=== PATIENT | female | born 1945 | race Caucasian/White ===

== ENCOUNTER 2019-03-09 18:15 | Inpatient (IN) | payer MEDICARE, MEDICAID ==
[~2019-03-09] VITALS: Ht 167.6 cm; Wt 55.3 kg
--- NOTE | 2019-03-09 18:15 | NUR ---
RECIEVED BY PRIVATE VEHICLE TO REHAB,ROOM 1112F FOR REHABILITATION S/P CVA.ORIENTED TO ROOM AND SURROUNDINGS.CL IN REACH.
[2019-03-09 19:00] VITALS: BP 139/58
--- NOTE | 2019-03-09 19:13 | NUR ---
PATIENT IS RESTING IN HER BED. BED IS DOWN LOW. SIDE RAILS UP X2. CALL LIGHT IS IN REACH.
[2019-03-09 21:37] VITALS: BP 139/58; BMI 19.7
--- NOTE | 2019-03-10 00:08 | NUR ---
PATIENT IS SLEEPING. BED IS DOWN LOW WITH SIDE RAILS UP X2. CALL LIGHT IS IN REACH.
--- NOTE | 2019-03-10 04:07 | NUR ---
PATIENT IS SLEEPING. HER SON IS AT BEDSIDE. BED IS DOWN LOW WITH SIDE RAILS UP X2. CALL LIGHT IS IN REACH.
--- NOTE | 2019-03-10 07:33 | NUR ---
ALERT AND ORIENTED. EATING BREAKFAST. NO DISTRESS NOTED. CL IN REACH.
[2019-03-10 08:36] VITALS: BP 143/63
[2019-03-10 08:48] LABS: BASOPHILS 0.1 % (0-2); EOSINOPHILS 2.9 % (0-7); HEMATOCRIT 38.7 % (36.0-48.0); HEMOGLOBIN 13.1 g/dL (12-16); IMMATURE GRANULOCYTES 0.5 % (0-5); MCH 32.1 pg (26.0-34.0); MCHC 33.9 g/dL (31.0-37.0); MCV 94.9 fL (80.0-100.0); MEAN PLATELET VOLUME 9.3 fL (7.4-10.4); MONOCYTES 8.1 % (2-11); NEUTROPHILS 77.4 % (40-80); PLATELET COUNT 356 10x3/uL (130-400); RBC 4.08 10x6/uL (4.00-5.40); RDW 14.6 % (11.5-14.5); WBC 10.6 10x3/uL (4.8-10.8)
[2019-03-10 09:00] LABS: ANION GAP 9.3 mmol/L (8-16); CALCIUM 8.9 mg/dL (8.5-10.1); CARBON DIOXIDE 29.2 mmol/L (21.0-32.0); CREATININE - SERUM 0.9 mg/dL (0.6-1.3); POTASSIUM - SERUM 4.5 mmol/L (3.5-5.1)
--- NOTE | 2019-03-10 09:57 | NUR ---
PATIENT ADMITTED TO REHAB FROM AN OUTSIDE FACILITY WITH THE DX OF CVA. DR. PEREZ IS HER PCP. WILL CONTINUE TO FOLLOW WITH PATIENT AND WILL ASSIST WITH DC NEEDS.
--- NOTE | 2019-03-10 12:57 | NUR ---
SITTING IN CHAIR. NO DISTRESS NOTED. CL IN REACH.
--- NOTE | 2019-03-10 12:58 | NUR ---
SHOWER TODAY PER OT.
[2019-03-10 13:01] VITALS: Ht 167.6 cm; Wt 55.3 kg
[2019-03-10 13:24] VITALS: BP 120/49
--- NOTE | 2019-03-10 13:51 | NUR ---
CARE TEAM MEETING: PATIENT IS NEW TO UNIT AND WILL BE RA AT NEXT MEETING. WILL CONTINUE TO FOLLOW WITH PATIENT
--- NOTE | 2019-03-10 15:38 | NUR ---
PARTICIPATING IN THERAPY. NO DISTRESS NOTED.
--- NOTE | 2019-03-10 18:30 | NUR ---
NO C/O PAIN. NO CHANGE IN ASSESSMENT. CL IN REACH. RESP EVEN AND UNLABORED.
[2019-03-10 19:00] VITALS: BP 131/47
--- NOTE | 2019-03-10 23:46 | NUR ---
PT IN BED UP TO TOILET, DRAGGING OF LEFT FOOT NOTED, LINGERING EFFECTS OF PREVIOUS STROKE, FLUIDS AND CALL LIGHT WITHIN REACH
--- NOTE | 2019-03-11 04:49 | NUR ---
PT IN BED LOW POSITION, EYES CLOSED, AROUSES EASILY TO VOICE, FLUIDS AND CALL LIGHT WITHIN REACH, NO NEEDS NOTED
[2019-03-11 08:00] VITALS: BP 122/52
--- NOTE | 2019-03-11 08:15 | NUR ---
PT RESTING IN BED WITH EYES OPEN CALL LIGHT IN REACH WILL MONITER
--- NOTE | 2019-03-11 18:41 | NUR ---
PT RESTING IN BED WITH EYES OPEN CALL LIGHT IN REACH WILL MONITER
[2019-03-11 19:48] VITALS: BP 108/48
--- NOTE | 2019-03-11 19:53 | NUR ---
PATIENT RECEIVED LAYING IN BED. ASSESSMENT DONE. BED LOW. ALARM ON. WILL CONTINUE TO MONITOR.
--- NOTE | 2019-03-12 00:28 | NUR ---
I have reviewed this patient and I concur with the Shift Assessment completed by the Licensed Practical Nurse today this shift.
--- NOTE | 2019-03-12 00:57 | NUR ---
PATIENT EYES CLOSED. RESPIRATIONS 18 & EVEN. BED LOW. ALARM ON. CALL LIGHT WITHIN REQCH. WILL CONTINUE TO MONITOR.
[2019-03-12 06:10] LABS: ANION GAP 10.3 mmol/L (8-16); CALCIUM 8.6 mg/dL (8.5-10.1); CARBON DIOXIDE 28.4 mmol/L (21.0-32.0); CREATININE - SERUM 0.9 mg/dL (0.6-1.3); POTASSIUM - SERUM 4.7 mmol/L (3.5-5.1)
[2019-03-12 06:15] LABS: BASOPHILS 0.2 % (0-2); EOSINOPHILS 3.2 % (0-7); HEMATOCRIT 35.6 % (36.0-48.0); HEMOGLOBIN 12.1 g/dL (12-16); IMMATURE GRANULOCYTES 0.4 % (0-5); LYMPHOCYTES 11.6 % (15-50); MCH 31.9 pg (26.0-34.0); MCV 93.9 fL (80.0-100.0); MEAN PLATELET VOLUME 9.5 fL (7.4-10.4); MONOCYTES 9.6 % (2-11); PLATELET COUNT 356 10x3/uL (130-400); RBC 3.79 10x6/uL (4.00-5.40); RDW 14.6 % (11.5-14.5); WBC 9.5 10x3/uL (4.8-10.8)
[2019-03-12 08:14] VITALS: BP 110/64
--- NOTE | 2019-03-12 14:02 | NUR ---
Nutrition Follow Up: Chart reviewed Diet: AHA PO Intake: 73% meal avg BM: 03/10/19 Meds and labs reviewed Rec continue current diet. RD following.
--- NOTE | 2019-03-12 18:14 | NUR ---
PT RESTING IN BED WITH EYES OPEN CALL LIGHT IN REACH NO PROBLEM WILL MONITER
[2019-03-12 19:26] VITALS: BP 122/69
--- NOTE | 2019-03-12 19:26 | NUR ---
GREETED PATIENT AND INTRODUCED MYSELF. PATIENT IS LAYING IN BED AND STATES THAT SHE HAS BEEN FEELING DIZZY AT TIMES THROUGHOUT THE DAY. VITAL SIGNS OBTAINED. PATIENT DENIES ANY FURTHER NEEDS AT THIS TIME. CALL LIGHT IN REACH.
--- NOTE | 2019-03-12 20:12 | NUR ---
ASSISTED PATIENT TO BATHROOM USING WHEELCHAIR. HELPED PATIENT GET INTO NIGHT CLOTHES AND BACK TO BED AND REPOSITIONED FOR COMFORT. CALL LIGHT IN REACH.
--- NOTE | 2019-03-12 22:05 | NUR ---
ASSISTED PATIENT TO BATHROOM USING WHEELCHAIR. PATIENT BACK TO BED AND REPOSITIONED FOR COMFORT. CALL LIGHT IN REACH.
--- NOTE | 2019-03-13 01:05 | NUR ---
PATIENT ASLEEP AND RESTING QUIETLY LAYING IN SUPINE POSITION. HOB AT 35 DEGREES. PILLOW UNDER BOTH LEGS FOR COMFORT. RESPIRATIONS EVEN. NO S/S OF DISTRESS. SR UP X 2. BED IN LOWEST POSITION. CALL LIGHT IN REACH.
--- NOTE | 2019-03-13 10:10 | NUR ---
PT AM MEDS ADMINISTERED. PT DENIES NEEDS. WCTM.
--- NOTE | 2019-03-13 12:30 | NUR ---
PT SITTING UP FOR LUNCH, DENIES NEEDS. WCTM.
[2019-03-13 14:56] VITALS: BP 111/67
[2019-03-13 19:52] VITALS: BP 83/54
--- NOTE | 2019-03-13 20:00 | NUR ---
ASSISTED PT TO AND FROM BATHROOM BY WHEELCHAIR. PT HAS WEAKNESS TO LEFT SIDE FROM PREVIOUS CVA. PT PREFORMED DENTAL HYGIENE BY SINK. VITALS WERE TAKEN AT THIS TIME BP WAS 83/67. INFORMED PT THIS NURSE WOULD RETAKE IN 20 MIN. PT PUT BACK IN BED. PT DENIES ANY FURTHER NEEDS AT THIS TIME. BED IN LOW SIDE RAILS X2. A/O X4. LUNGS CLEAR. BOWEL ACTIVE X4. WILL CONTINUE TO MONITOR.
[2019-03-13 21:13] VITALS: BP 137/62
--- NOTE | 2019-03-13 22:28 | NUR ---
PT YELLED "HELP ME" THIS NURSE WENT INTO ROOM. PT STATED SHE FELT WEIRD AND ASKED TO TAKE BP AGAIN. IT WAS 137/62. PT ASKED FOR SPRITE TO SEE IF SHE NEEDED SOME CAFFINE. SHE STATED IT MIGHT HAVE BEEN A DREAM CAUSE SHE FELT FINE NOW. WCTM
--- NOTE | 2019-03-14 00:22 | NUR ---
RESTING IN BED WITH EYES CLOSED AND RESPIRATIONS UNLABORED. NO DISTRESS NOTED. CALL LIGHT IN REACH.
--- NOTE | 2019-03-14 02:25 | NUR ---
TOILETED PT. BACK IN BED. WCTM
--- NOTE | 2019-03-14 03:17 | NUR ---
PT RESTING QUIETLY. CALL LIGHT IN REACH. EYES CLOSED. NO SIGNS OF DISTRESS OR PAIN. WCTM
[2019-03-14 08:00] VITALS: BP 131/71
--- NOTE | 2019-03-14 08:00 | NUR ---
SHIFT ASSMT COMPLETED.
--- NOTE | 2019-03-14 12:29 | NUR ---
ALERT AND ORIENTED THIS MORNING. ATE 100% OF BREAKFAST. HAD SHOWER THIS MORNING. FAMILY CAME IN TO SEE HER AND SHE IS OUT ON THE PATIO WITH HER FAMILY EATING LUNCH AT THIS TIME. WILL CONTINUE TO MONITOR.
--- NOTE | 2019-03-14 19:38 | NUR ---
PT IS RESTING IN BED WITH EYES OPEN. ALERT AND ORIENTED X 3. SHE DENIES ACUTE PAIN OR DISCOMFORT AT THIS TIME. NO NEEDS VOICED. SR'S ARE UP X 2 IN BED. CALL LIGHT AND BEDSIDE TABLE ARE WITHIN EASY REACH.
[2019-03-14 20:00] VITALS: BP 118/65
--- NOTE | 2019-03-14 23:10 | NUR ---
RESTING QUIETLY IN BED WITH EYES CLOSED.
[2019-03-15 07:01] LABS: ANION GAP 10.1 mmol/L (8-16); CALCIUM 8.4 mg/dL (8.5-10.1); CARBON DIOXIDE 28.5 mmol/L (21.0-32.0); CREATININE - SERUM 0.8 mg/dL (0.6-1.3); POTASSIUM - SERUM 4.6 mmol/L (3.5-5.1)
[2019-03-15 07:02] LABS: BASOPHILS 0.5 % (0-2); EOSINOPHILS 6.7 % (0-7); HEMOGLOBIN 12.5 g/dL (12-16); IMMATURE GRANULOCYTES 0.2 % (0-5); LYMPHOCYTES 12.6 % (15-50); MCHC 33.8 g/dL (31.0-37.0); MCV 94.6 fL (80.0-100.0); MEAN PLATELET VOLUME 9.1 fL (7.4-10.4); MONOCYTES 9.6 % (2-11); NEUTROPHILS 70.4 % (40-80); PLATELET COUNT 384 10x3/uL (130-400); RBC 3.91 10x6/uL (4.00-5.40); RDW 14.7 % (11.5-14.5); WBC 8.6 10x3/uL (4.8-10.8)
[2019-03-15 07:55] VITALS: BP 119/43
--- NOTE | 2019-03-15 07:59 | NUR ---
PATIENT IS ALERT/ORIENT. SITTING UP IN BED TO EAT BREAKFAST. CALL LIGHT WITHIN REACH. VOICES NO NEEDS AT THIS TIME. WILL CONTINUE WITH PLAN OF CARE
--- NOTE | 2019-03-15 10:10 | NUR ---
PATIENT IN REHAB ROOM. WORKING WITH OCCUPATIONAL THERAPIST. DENIES ANY PAIN/DISC AT THIS TIME.
--- NOTE | 2019-03-15 10:26 | NUR ---
CLINICAL UPDATES FAXED TO CONNOR ECHEVERRIA AT [facility], AUTH. # [id number], FAXED TO WITH CONFORMATION RECIEVED
--- NOTE | 2019-03-15 13:14 | NUR ---
PATIENT TAKEN TO REHAB ROOM BY PHYSICAL THERAPIST
--- NOTE | 2019-03-15 17:46 | NUR ---
PATIENT SITTING UP IN BED TO EAT SUPPER. CALL LIGHT WITHIN REACH. VOICES NO NEEDS AT THIS TIME.
[2019-03-15 19:00] VITALS: BP 130/65
--- NOTE | 2019-03-15 19:40 | NUR ---
PT IS RESTING IN BED WITH EYES OPEN. ALERT AND ORIENTED X 3. DENIES ACUTE PAIN OR DISCOMFORT. NO NEEDS VOICED. DAUGHTER IS AT BEDSIDE. SR'S ARE UP X 3 IN BED. CALL LIGHT AND BEDSIDE TABLE ARE WITHIN EASY REACH.
--- NOTE | 2019-03-15 22:16 | NUR ---
RESTING QUIETLY IN BED WITH EYES CLOSED. RESPS ARE EVEN AND UNLABORED. NO ACUTE DISTRESS NOTED.
--- NOTE | 2019-03-16 01:37 | NUR ---
RESTING IN BED WITH EYES CLOSED.
--- NOTE | 2019-03-16 04:14 | NUR ---
PT IN BED LOW POSITION, EYES CLOSED, AROUSES EASILY TO VOICE, NO NEEDS NOTED, FLUIDS AND CALL LIGHT WITHIN REACH
--- NOTE | 2019-03-16 08:15 | NUR ---
PT UP IN WHEELCHAIR EATING BREAKFAST TOLERATING WELL WILL MONITER
--- NOTE | 2019-03-16 12:40 | NUR ---
Nutrition Follow Up: Pt was asleep at the time of RD visit. Interview deferred at this time. Diet: AHA PO Intake: 55% meal avg BM: 03/15/19 Meds and labs reviewed Rec continue current diet; if po intake continues decreased consider liberalizing diet. RD following.
--- NOTE | 2019-03-16 14:55 | NUR ---
PT UP IN WHEELCHAIR IN ROOM CALL LIGHT IN REACH WILL MONITER
[2019-03-16 19:00] VITALS: BP 154/64
--- NOTE | 2019-03-16 19:48 | NUR ---
ASSESSMENT PER FLOW SHEET, PT REPORTS FLATUS, BM X 2, AND VOIDING WITH NO DIFFICULTY, PT C/O PAIN, ADM NORCO PER MD ORDERS, SEE EMAR, WITH BOTTLED WATER, PT DENIES FURTHER NEEDS, BED IN LOW POSITION, SIDE RAILS X 2, CALL LIGHT IN REACH
--- NOTE | 2019-03-16 20:30 | NUR ---
PT RESTING WITH EYES CLOSED, RESP QUIET, NO DISTRESS NOTED, LEFT UNDISTURBED AT THIS TIME
--- NOTE | 2019-03-16 22:14 | NUR ---
PT AWAKE, ADM 2100 MEDS PER MD ORDERS, SEE EMAR, PT RATES PAIN 05/03, STATES "IT'S GETTING BETTER", PT DENIES FURTHERS NEEDS, BED IN LOW POSITION, SIDE RAILS X 2, CALL LIGHT IN REACH
--- NOTE | 2019-03-16 22:37 | NUR ---
PT IN BED LOW POSITION, EYES CLOSED, AROUSES EASILY TO VOICE, NO NEEDS NOTED FLUIDS AND CALL LIGHT WITHIN REACH
--- NOTE | 2019-03-17 00:33 | NUR ---
PT RESTING WITH EYES CLOSED, RESP QUIET, NO DISTRESS NOTED, LEFT UNDISTURBED AT THIS TIME, BED IN LOW POSITION, SIDE RAILS X 2, CALL LIGHT IN REACH
--- NOTE | 2019-03-17 02:00 | NUR ---
PT SAMPLE TESTER LIGHT, PT UP TO BR VIA WC WITH ASSISTANCE, VOIDED WITH NO DIFFICULTY, PT BACK TO BED, DENIES FURTHER NEEDS, BED IN LOW POSITION, SIDE RAILS X 2, CALL LIGHT IN REACH
--- NOTE | 2019-03-17 05:26 | NUR ---
PT AWAKE, ADM 0600 MEDS AND PAIN MED FOR PAIN 07/03, PER MD ORDERS, SEE EMAR, PT DENIES FURTHER NEEDS, BED IN LOW POSITION, SIDE RAILS X 2, CALL LIGHT IN REACH
[2019-03-17 08:00] VITALS: BP 96/72
--- NOTE | 2019-03-17 08:00 | NUR ---
SHIFT ASSMT COMPLETED.
[2019-03-17 08:25] LABS: BASOPHILS 0.4 % (0-2); EOSINOPHILS 8.5 % (0-7); HEMATOCRIT 37.7 % (36.0-48.0); HEMOGLOBIN 12.8 g/dL (12-16); IMMATURE GRANULOCYTES 0.2 % (0-5); LYMPHOCYTES 12.6 % (15-50); MCH 32.3 pg (26.0-34.0); MCV 95.2 fL (80.0-100.0); MEAN PLATELET VOLUME 9.2 fL (7.4-10.4); MONOCYTES 7.3 % (2-11); PLATELET COUNT 386 10x3/uL (130-400); RBC 3.96 10x6/uL (4.00-5.40); RDW 14.6 % (11.5-14.5); WBC 9.8 10x3/uL (4.8-10.8)
[2019-03-17 08:39] LABS: ANION GAP 7.3 mmol/L (8-16); CALCIUM 8.8 mg/dL (8.5-10.1); CREATININE - SERUM 0.9 mg/dL (0.6-1.3); POTASSIUM - SERUM 4.3 mmol/L (3.5-5.1)
[2019-03-17 19:00] VITALS: BP 135/57
--- NOTE | 2019-03-17 19:04 | NUR ---
PATIENT IS RESTING IN HER BED. SHE DENIES ANY NEEDS. BED IS DOWN LOW WITH SIDE RAILS UP X2 AND CALL LIGHT IN REACH.
--- NOTE | 2019-03-18 00:01 | NUR ---
PATIENT IS SLEEPING. BED IS DOWN LOW WITH SIDE RAILS UP X2. CALL LIGHT IS IN REACH.
[2019-03-18 05:30] VITALS: BP 132/67
[2019-03-18 08:12] VITALS: BP 132/70
--- NOTE | 2019-03-18 10:32 | NUR ---
PT AM MEDS ADMINISTERED. PT DENIES NEEDS. WCTM.
--- NOTE | 2019-03-18 16:38 | NUR ---
CLINICAL UPDATES FAXED TO CONNOR ECHEVERRIA RN AT , AUTH. # [id number], POLICY # [id number] WITH CONFORMATION RECIEVED
--- NOTE | 2019-03-18 17:43 | NUR ---
PT SITTING UP EATING DINNER, VALERIE NEEDS. WCTM.
[2019-03-18 19:49] VITALS: BP 111/44
--- NOTE | 2019-03-18 23:11 | NUR ---
PATIENT EYES CLOSED. RESPIRATIONS 18 & EVEN. BED LOW. ALARM ON. CALL LIGHT WITHIN REACH. WILL CONTINUE TO MONITOR.
--- NOTE | 2019-03-19 01:14 | NUR ---
RESTING IN BED WITH RESPIRATIONS UNLABORED. NO DISTRESS NOTED. CALL LIGHT IN REACH.
[2019-03-19 06:06] VITALS: BP 128/68
[2019-03-19 07:03] LABS: ANION GAP 8.7 mmol/L (8-16); CALCIUM 8.9 mg/dL (8.5-10.1); CARBON DIOXIDE 29.2 mmol/L (21.0-32.0); CREATININE - SERUM 0.8 mg/dL (0.6-1.3); POTASSIUM - SERUM 4.9 mmol/L (3.5-5.1)
[2019-03-19 07:10] LABS: BASOPHILS 0.5 % (0-2); EOSINOPHILS 11.7 % (0-7); HEMATOCRIT 36.4 % (36.0-48.0); HEMOGLOBIN 12.2 g/dL (12-16); IMMATURE GRANULOCYTES 0.4 % (0-5); LYMPHOCYTES 13.6 % (15-50); MCH 31.9 pg (26.0-34.0); MCHC 33.5 g/dL (31.0-37.0); MEAN PLATELET VOLUME 9.5 fL (7.4-10.4); MONOCYTES 10.8 % (2-11); PLATELET COUNT 356 10x3/uL (130-400); RBC 3.83 10x6/uL (4.00-5.40); RDW 14.6 % (11.5-14.5); WBC 7.7 10x3/uL (4.8-10.8)
--- NOTE | 2019-03-19 08:40 | NUR ---
PT AM MEDS ADMINISTERED. PT DENIES NEEDS. WCTM.
[2019-03-19 10:10] VITALS: BP 104/50
--- NOTE | 2019-03-19 17:45 | NUR ---
PT SITTING UP EATING DINNER, DENIES NEEDS. WCTM.
--- NOTE | 2019-03-19 21:24 | NUR ---
Patient alert and oriented, calm and cooperative, no needs voiced, will continue to monitor, medication administered as ordered.
[2019-03-19 22:04] VITALS: BP 111/57
--- NOTE | 2019-03-20 00:52 | NUR ---
Patient is resting quietly eyes closed, respirations even and unlabored, no distress noted.
--- NOTE | 2019-03-20 06:12 | NUR ---
Patient given norco 10 for back and shoulder pain 8 of 10 at 05:43.
[2019-03-20 07:30] VITALS: BP 139/62
--- NOTE | 2019-03-20 09:34 | NUR ---
LAYING IN BED RESTING QUIETLY. JUST WENT TO BATHROOM WITH MIN ASST. DENIES PAIN OR SOB. LEFT SIDE WEAKNESS NOTED. CALL LIGHT IN REACH
--- NOTE | 2019-03-20 17:22 | NUR ---
SITTING UP IN BED FOR SUPPER. FAMILY VISITED TODAY AND SHE STAYED UP WITH THEM. DENIES NEEDS.
--- NOTE | 2019-03-20 19:10 | NUR ---
PATIENT IS IN HER BED SLEEPING. BED IS DOWN LOW WITH SIDE RAILS UP X2. CALL LIGHT IN REACH.
[2019-03-20 19:40] VITALS: BP 131/62
--- NOTE | 2019-03-21 00:10 | NUR ---
PATIENT TAKEN TO THE BATHROOM, THEN BACK TO BED. SHE DENIES ANY NEEDS. BED IS DOWN LOW WITH SIDE RAILS UP X2. CALL LIGHT IN REACH.
[2019-03-21 05:55] VITALS: BP 149/60
[2019-03-21 07:26] VITALS: BP 103/63
--- NOTE | 2019-03-21 16:12 | NUR ---
RESTING QUIETLY IN BED. HAS BEEN AWAKE WATCHING TV AND TALKING TO ROOM MATE. DENIES C/O OR NEEDS. CALL LIGHT IN REACH. BED IN LOWEST POSITION AND SIDE RAILS UP X2.
[2019-03-21 19:30] VITALS: BP 164/50
--- NOTE | 2019-03-21 19:44 | NUR ---
THE PATIENT WAS LYING IN BED AND TALKING TO HER ROOM MATE WHEN STAFF ENTERED HER ROOM. BED IS IN THE LOW POSITION WITH SIDERAILS X2 AND CALL LIGHT WITHIN REACH. THE PATIENT DEMONSTRATES APPROPRIATE USE OF A CALL LIGHT. THE PATIENT STATES PAIN IN HER SHOULDERS. PAIN MEDICATION DELIVERED. THE PATIENT HAS NO OTHER COMPLAINTS OR CONCERNS AT THIS TIME.
--- NOTE | 2019-03-22 02:42 | NUR ---
THE PATIENT APPEARS TO BE SLEEPING. BED IS IN THE LOW POSITION WITH SIDERAILS X2 AND CALL LIGHT WITHIN REACH.
[2019-03-22 06:28] LABS: BASOPHILS 0.4 % (0-2); EOSINOPHILS 15.3 % (0-7); HEMATOCRIT 36.9 % (36.0-48.0); HEMOGLOBIN 12.5 g/dL (12-16); IMMATURE GRANULOCYTES 0.2 % (0-5); LYMPHOCYTES 14.8 % (15-50); MCH 32.1 pg (26.0-34.0); MCHC 33.9 g/dL (31.0-37.0); MCV 94.9 fL (80.0-100.0); MEAN PLATELET VOLUME 9.5 fL (7.4-10.4); MONOCYTES 9.2 % (2-11); NEUTROPHILS 60.1 % (40-80); PLATELET COUNT 325 10x3/uL (130-400); RBC 3.89 10x6/uL (4.00-5.40); RDW 14.5 % (11.5-14.5); WBC 8.3 10x3/uL (4.8-10.8)
[2019-03-22 06:41] LABS: ANION GAP 7.5 mmol/L (8-16); CALCIUM 8.9 mg/dL (8.5-10.1); CREATININE - SERUM 0.8 mg/dL (0.6-1.3); POTASSIUM - SERUM 4.5 mmol/L (3.5-5.1)
[2019-03-22 07:30] VITALS: BP 108/64
--- NOTE | 2019-03-22 09:46 | NUR ---
Nutrition Follow Up: Pt is on an AHA diet with 52% average po intake BM yesterday Spoke with pt about nutrition. Pt is well aware of foods with protein and tries to focus on getting adequate protein. Pt is drinking Ensure. Pt hopes to d/c and reports no nutritional requests RD following
--- NOTE | 2019-03-22 18:17 | NUR ---
PATIENT SITTING UP IN WHEELCHAIR AT BEDSIDE TO EAT SUPPER. VOICES NO NEEDS AT THIS TIME. CALL LIGHT WITHIN REACH
[2019-03-22 19:10] VITALS: BP 135/62
--- NOTE | 2019-03-22 19:10 | NUR ---
ASSESSMENT PER FLOW SHEET, VS OBTAINED, PT REPORTS FLATUS, BM TODAY AND VOIDING WITH NO DIFFICULTY, PT RATES LEFT SHOULDER PAIN 5/, INFORMED PT THAT I WILL SEE WHEN PAIN MED IS DUE, AND ADM IT WHEN SHE COULD HAVE IT, PT VERBALIZES UNDERSTANDING, DENIES NEEDS AT THIS TIME, PT'S DAUGHTER IN ROOM VISITING, BED IN LOW POSITION, SIDE RAILS X 2, CALL LIGHT IN REACH
--- NOTE | 2019-03-22 20:00 | NUR ---
PT CLINICAL INFORMATICIST LIGHT, PT UP TO BR WITH ASSISTANCE VIA WC, PT TO COMMODE, VOIDED AND HAD BM, PT BACK TO CHAIR, TO SINK TO WASH HANDS, BACK TO BED, DENIES FURTHER NEEDS, BED IN LOW POSITION, SIDE RAILS X 2, CALL LIGHT IN REACH
--- NOTE | 2019-03-22 21:20 | NUR ---
PT RESTING WITH EYES CLOSED, AROUSES TO SOFT VERBAL STIMULATION, ADM 2100/2200 MEDS PER MD ORDERS, SEE EMAR, PT UP TO BR WITH ASSISTANCE VIA WC, VOIDED, TO SINK TO WASH HANDS AND BRUSH TEETH, PT BACK TO BED, DENIES FURTHER NEEDS, BED IN LOW POSITION, SIDE RAILS X 2, CALL LIGHT IN REACH
--- NOTE | 2019-03-22 23:34 | NUR ---
PT SENIOR JAVA DATA ARCHITECT LIGHT, PT UP TO BR VIA WC WITH ASSISTANCE, VOIDED WITH NO DIFFICULTY, TO SINK TO WASH HANDS, BACK TO BED, C/O LEFT SHOULDER PAIN, ADM NORCO PER MD ORDERS, SEE EMAR, PT DENIES FURTHER NEEDS, BED IN LOW POSITION, SIDE RAILS X 2, CALL LIGHT IN REACH
[2019-03-23 05:44] VITALS: BP 133/73
--- NOTE | 2019-03-23 05:44 | NUR ---
PT RESTING WITH EYES CLOSED, AROUSES TO SOFT VERBAL STIMULATION, BP OBTAINED, ADM 0600 MEDS PER MD ORDERS, SEE EMAR, PT DENIES FURTHER NEEDS OR PAIN, STATES "I SLEPT SO MUCH BETTER LAST NIGHT", BED IN LOW POSITION, SIDE RAILS X 2, CALL LIGHT IN REACH
--- NOTE | 2019-03-23 07:28 | NUR ---
NO CHANGE IN ASSESSMENT. RESP EVEN AND UNLABORED. CL IN REACH.
--- NOTE | 2019-03-23 08:14 | NUR ---
PT UP IN WHEELCHAIR EATING BREAKFAST TOLERATING WELL WILL MONITER
--- NOTE | 2019-03-23 14:49 | NUR ---
CARE TEAM MEETING: PATIENT PROGRESSING WELL IN THERAPY. TENATIVE DISCHARGE DATE IS 03/25/19 HOMEW WITH FAMILY. WILL CONTINUE TO FOLLOW WITH PATIENT AND WILL ASSIST WITH DISCHARGE NEEDS.
--- NOTE | 2019-03-23 18:13 | NUR ---
PT RESTING IN BED WITH EYES OPEN CALL LIGHT IN REACH WILL MONITER
[2019-03-23 19:20] VITALS: BP 109/46
--- NOTE | 2019-03-23 19:20 | NUR ---
PT RESTING WITH EYES CLOSED, AROUSES TO SOFT VERBAL STIMULATION, ASSESSMENT PER FLOW SHEET, VS OBTAINED, PT REPORTS FLATUS, BM TODAY AND VOIDING WITH NO DIFFICULTY, PT RATES PAIN 5/10, DENIES NEEDS AT THIS TIME, BED IN LOW POSITION, SIDE RAILS X 2, CALL LIGHT IN REACH
--- NOTE | 2019-03-23 21:28 | NUR ---
PT RESTING WITH EYES CLOSED, AROUSES TO SOFT VERBAL STIMULATION, ADM 2100 MEDS PER MD ORDERS, SEE EMAR, PT UP TO BR WITH ASSISTANCE VIA WC, VOIDED WITH NO DIFFICULTY, PT BACK TO BED, DENIES FURTHER NEEDS
--- NOTE | 2019-03-24 01:46 | NUR ---
PT INVENTORY ASSOCIATE LIGHT, PT UP TO BR VIA WC WITH ASSISTANCE, VOIDED WITH NO DIFFICULTY, PT BACK TO BED, REQUESTED AND ADM ROBAXIN PO PER MD ORDERS, SEE EMAR, PT DENIES FURTHER NEEDS
--- NOTE | 2019-03-24 04:40 | NUR ---
PT AROUSES TO ME IN ROOM REMOVING TRASH, PT UP TO BR VIA WC WITH ASSISTANCE, VOIDED WITH NO DIFFICULTY, PT BACK TO BED, REPORTS THAT THE ROBAXIN HELPED HER, AND THAT SHE IS GOING TO TRY AND WAIT TO TAKE THE PAIN MED RIGHT BEFORE THERAPY, PT DENIES FURTHER NEEDS, BED IN LOW POSITION, SIDE RAILS X 2, CALL LIGHT IN REACH
[2019-03-24 06:14] VITALS: BP 141/79
--- NOTE | 2019-03-24 06:14 | NUR ---
PT AWAKE, OBTAINED BP, ADM 0600 MEDS PER MD ORDERS, SEE EMAR, PT REQUESTED AND SERVED BOTTLE OF WATER AND CUP OF COFFEE, PT DENIES FURTHER NEEDS
--- NOTE | 2019-03-24 07:53 | NUR ---
PT SITTING UP IN WHEELCHAIR EATING BREAKFAST, DENIES NEEDS. WCTM.
[2019-03-24 08:00] VITALS: BP 131/78
[2019-03-24] MEDS ORDERED: LANOXIN125 MCG PO (08:50)
[2019-03-24] MEDS ORDERED: ROBAXIN500 MG PO (08:50)
[2019-03-24] MEDS ORDERED: ELIQUIS5 MG PO (08:50)
[2019-03-24] MEDS ORDERED: LIPITOR20 MG PO (08:50)
[2019-03-24] MEDS ORDERED: CARDIZEM 90 MG90 MG PO (08:51)
[2019-03-24] MEDS ORDERED: NORCO-10 PO (08:51)
[2019-03-24] MEDS ORDERED: COLACE100 MG PO (08:51)
[2019-03-24] MEDS ORDERED: ASPIRIN EC81 M1 PO (08:51)
[2019-03-24] MEDS ORDERED: HYDRALAZINE HCL25 MG PO (08:51)
[2019-03-24] MEDS ORDERED: MECLIZINE HCL25 MG PO (08:51)
[2019-03-24] MEDS ORDERED: LISINOPRIL10 MG PO (08:51)
[2019-03-24] MEDS ORDERED: PROTONIX40 MG PO (08:51)
--- NOTE | 2019-03-24 08:52 | RHP ---
PATIENT: JOSE THOMASON MEDICAL RECORD: [id number] ACCOUNT: [id number] LOCATION:[facility]1113 : 43 ADMISSION DATE: 03/09/19 REHABILITATION HISTORY AND PHYSICAL EXAMINATION POST ADMISSION PHYSICIAN EXAMINATION DATE OF ADMISSION: 03/09/2019 ADMITTING DIAGNOSES: Cerebrovascular accident with subacute infarcts in the right frontal parietal lobe with left body involvement. HISTORY OF PRESENT ILLNESS: The patient is a 73-year-old female patient that presented to the ED after syncope due to her heart beating so fast that she claimed it made her pass out. She was noted to have been found on the floor for a couple days and brought to the ED. Her family complained of left-sided weakness. She was found to have an MRI that showed acute/subacute infarcts in the right frontal parietal lobe. She had continued to complain of left shoulder pain during her acute stay. An MRI of this shoulder showed a displaced distal clavicular fracture with marked surrounding soft tissue edema. She also had tendinosis in her supraspinatus and subscapularis tendons. She is currently on telemetry, supplemental O2, has left-sided weakness. She is deconditioned, impaired mobility. She is high risk for falls and self-care deficits. These are all barriers to her discharge home at this time. She lives at home alone, was independent with her mobility and ADLs prior to this. Currently setup for max assist with her ADLs and mod to total assist with her mobility. She would like to return back home to her prior level of function if possible after inpatient rehab stay. She has a family and caregivers that are closely involved in her care. COMORBIDITIES: In this patient include atrial fibrillation with rapid ventricular response, hypotension, rhabdomyolysis, clavicular fracture, degenerative joint disease, thrush, syncope, weakness, TMJ, fibromyalgia, non-ST segment elevation [place] and troponin elevation. PAST MEDICAL HISTORY: Significant for tobacco use, skin cancer, carbuncle and hypertension. PAST SURGICAL HISTORY: None. ALLERGIES: No known drug allergies. CURRENT MEDICATIONS: Include Protonix 40 mg daily, lisinopril 20 mg daily, she is on digoxin 0.125 mg daily, Lipitor 40 mg daily, aspirin 81 mg daily, Levaquin 500 mg every 24 hours, polyethylene glycol 17 grams in 8 ounces of water daily, she is on Nystatin swish and swallow q.i.d., Robaxin 500 mg t.i.d. p.r.n., Antivert 25 mg t.i.d. p.r.n., [place] 1 tab every 8 hours p.r.n., Apresoline 25 mg every 8 hours p.r.n., Cardizem 90 mg t.i.d., Polysporin to apply b.i.d., She is on Eliquis 5 mg b.i.d., and Ventolin updrafts 2 puffs every 8 hours p.r.n. HABITS: Does have a history of tobacco use. FAMILY HISTORY: Noncontributory. SOCIAL HISTORY: The patient hopes to return back home and get back to her prior level of functioning. HISTORY AND PHYSICAL [id number] JOSE THOMASON REVIEW OF SYSTEMS: GENERAL: Does complain of weakness and fatigue, worse on the left. HEENT: Denies cold, cough, or congestion. CARDIOVASCULAR: Denies chest pain. PHYSICAL EXAMINATION: VITAL SIGNS: Stable, afebrile. GENERAL: Elderly female, in no acute distress, alert upon exam. HEENT: Normocephalic and atraumatic. Mucosa moist. NECK: Supple. No lymphadenopathy. LUNGS: Clear at this time with no wheeze, rhonchi or rales. HEART: Irregular rate and rhythm. No murmurs, rubs or gallops. ABDOMEN: Benign. EXTREMITIES: No clubbing, cyanosis or edema. NEUROLOGIC: She does have noted left-sided weakness. ASSESSMENT: This is a 73-year-old female patient admitted to rehab with a working diagnosis of cerebrovascular accident with left body involvement. The patient has potential to make improvement. We instituted the following multidisciplinary therapies include, but not limited to physical, occupational, respiratory, speech, nutritional services, prosthetics and orthotics. Given her complex medical condition and risks for more complications, rehabilitation services cannot be provided at a low level of care such as skilled nurse facility. PLAN: 1. Admit to [facility] for intensive inpatient therapy to include the following disciplines: A. Physical therapy to improve gait, all transfer skills and bed mobility to a modified independent level. B. Occupational therapy to a modified independent level. C. Case management to assist with discharge planning and placement options. D. Nutrition to assist with nutritional needs. E. Rehabilitation nursing to assist in monitoring the patient's underlying medical conditions and to assist with any type of bowel or bladder management. 2. The patient's current medication and medical care will be continued. 3. Placed on standard fall precautions. 4. The patient's estimated length of stay is approximately 7-10 days. 5. We will discuss this patient during care team staff meeting this week. We will continue on home medications where appropriate and I will see again in the morning. TRANSINT:[id number] Voice Confirmation ID: [id number] DOCUMENT ID: [id number] BERNARDINO notes whether there has been none or any medical/functional change since admission: - No change since pre-admission screen. BERNARDINO attests patient continues to be appropriate for IRF: - Continues to be appropriate. HISTORY AND PHYSICAL [id number] JOSE THOMASON,KEYON VENTURA MD at 0852 CC: [id number] DICTATION DATE: 03/10/19 0740 MACHINIST INSTRUCTOR: 03/10/19 1127 ADM IN [place] [id number] [place] [id number]
[2019-03-24 09:14] LABS: BASOPHILS 0.2 % (0-2); HEMATOCRIT 39.1 % (36.0-48.0); HEMOGLOBIN 13.2 g/dL (12-16); IMMATURE GRANULOCYTES 0.2 % (0-5); LYMPHOCYTES 14.8 % (15-50); MCHC 33.8 g/dL (31.0-37.0); MCV 94.9 fL (80.0-100.0); MEAN PLATELET VOLUME 9.8 fL (7.4-10.4); NEUTROPHILS 62.8 % (40-80); PLATELET COUNT 346 10x3/uL (130-400); RBC 4.12 10x6/uL (4.00-5.40); RDW 14.4 % (11.5-14.5); WBC 8.7 10x3/uL (4.8-10.8)
[2019-03-24 09:27] LABS: ANION GAP 9.5 mmol/L (8-16); CARBON DIOXIDE 28.6 mmol/L (21.0-32.0); CREATININE - SERUM 0.9 mg/dL (0.6-1.3); POTASSIUM - SERUM 4.1 mmol/L (3.5-5.1)
--- NOTE | 2019-03-24 17:50 | NUR ---
PT EATING DINNER, DENIES NEEDS. WCTM.
--- NOTE | 2019-03-24 19:15 | NUR ---
GREETED PATIENT AND INTRODUCED MYSELF. PATIENT IS LAYING IN BED IN SUPINE POSITION. HOB AT 30 DEGREES. DENIES ANY NEEDS AT THIS TIME. CALL LIGHT IN REACH.
[2019-03-24 20:37] VITALS: BP 120/48
--- NOTE | 2019-03-25 00:29 | NUR ---
PATIENT RESTING QUIETLY WITH EYES CLOSED LAYING IN SUPINE POSITION. HOB AT 20 DEGREES. RESPIRATIONS EVEN. NO S/S OF DISTRESS. SR UP X 2. BED IN LOWEST POSITION. CALL LIGHT IN REACH.
--- NOTE | 2019-03-25 08:15 | NUR ---
PT RESTING IN BED WITH EYES OPEN CALL LIGHT IN REACH NO PROBLEMS WILL MONITER
--- NOTE | 2019-03-25 10:03 | NUR ---
PATIENT DISCHARGING HOME TODAY WITH FAMILY. NO HOME HEALTH OR DME NEEDED AT THIS TIME. FAMILY WILL MAKE AN APPOINTMENT WITH DR. PEREZ FOR FOLLOW UP/ PATIENT CHOICE FORM AND IMFM FORMS SIGNED, COPY GIVEN TO PATIENT AND FILED IN CHART. DISCHARGE INSTRUCTIONS WITH [facility] DATA FAXED TO PCP AND REVIEWED WITH PATIENT.
--- NOTE | 2019-03-25 13:00 | NUR ---
PT DISCHARGED TO HOME VIA WHEELCHAIR WITH SON DISCHARGE SUMMARY AND MEDS REVIEWED WITH PT. ALL MEDS CALLED INTO [facility] IN [facility].NO QUESTIONS OR CONCERNS.
== END 2019-03-25 13:29 | disposition home or self-care (01) | DRG 56 ==
LOC: D.REHAB 18:15
PROVIDERS: ADMIT Emergency Medicine; ATTEND Emergency Medicine
DX: I69.30 Unspecified sequelae of cerebral infarction (principal); I21.4 Non-ST elevation (NSTEMI) myocardial infarction; M62.82 Rhabdomyolysis; N17.9 Acute kidney failure, unspecified; B37.0 Candidal stomatitis; I48.91 Unspecified atrial fibrillation; I95.9 Hypotension, unspecified; S42.032D Displaced fracture of lateral end of left clavicle, subsequent encounter for fracture with routine healing; W19.XXXD Unspecified fall, subsequent encounter; M19.90 Unspecified osteoarthritis, unspecified site; B37.9 Candidiasis, unspecified; R55 Syncope and collapse; R53.1 Weakness; M26.609 Unspecified temporomandibular joint disorder, unspecified side; M79.7 Fibromyalgia; I10 Essential (primary) hypertension

== ENCOUNTER → 2019-10-18 09:40 | Outpatient (CLI) | payer MEDICARE ==
[2019-03-10 13:01] VITALS: BMI 19.7
[~2019-10-18 09:40] MED LIST: ASPIRIN EC81 M1 PO; CARDIZEM 90 MG90 MG PO; COLACE100 MG PO; ELIQUIS5 MG PO; HYDRALAZINE HCL25 MG PO; LANOXIN125 MCG PO; LIPITOR20 MG PO; LISINOPRIL10 MG PO; MECLIZINE HCL25 MG PO; NORCO-10 PO; PROTONIX40 MG PO; ROBAXIN500 MG PO
== END | disposition home or self-care (01) ==
LOC: D.RAD 09:40
PROVIDERS: ATTEND Internal Medicine Gastroenterology
DX: K44.9 Diaphragmatic hernia without obstruction or gangrene (principal)